=== PATIENT | male | born 1995 | race Caucasian/White ===

== ENCOUNTER 2018-07-29 02:06 | Emergency (ER) | payer BC, MEDICAID ==
[~2018-07-29] VITALS: Ht 175.3 cm; Wt 72.6 kg
[2018-07-29] MEDS ORDERED: IBUPROFEN 800 MG TAB PO ONE (03:30)
[2018-07-29] MEDS ORDERED: ACETAMINOPHEN 500 MG TAB PO ONE (03:30)
[2018-07-29 04:19] VITALS: BP 129/68
== END 2018-07-29 04:22 | disposition home or self-care (01) ==
LOC: ER 02:11
DX: S60.412A Abrasion of right middle finger, initial encounter (principal); M62.830 Muscle spasm of back; M51.26 Other intervertebral disc displacement, lumbar region; M51.44 Schmorl's nodes, thoracic region; Z88.2 Allergy status to sulfonamides; V43.52XA Car driver injured in collision with other type car in traffic accident, initial encounter; Y93.89 Activity, other specified; Y99.8 Other external cause status; Y92.410 Unspecified street and highway as the place of occurrence of the external cause
CPT/HCPCS: 70450; 72128; 72131; 73140

== ENCOUNTER 2020-07-29 20:58 | Emergency (ER) | payer BC, MEDICAID ==
[~2020-07-29] VITALS: Ht 175.3 cm; Wt 72.6 kg
[2020-07-29 21:17] VITALS: BP 130/80
== END 2020-07-29 23:55 | disposition home or self-care (01) ==
LOC: ER 21:03
DX: N43.3 Hydrocele, unspecified (principal); L72.0 Epidermal cyst; Z88.2 Allergy status to sulfonamides
CPT/HCPCS: 76870

== ENCOUNTER 2020-08-01 10:10 | Emergency (ER) | payer BC ==
[~2020-08-01] VITALS: Ht 175.3 cm; Wt 72.6 kg
[2020-08-01] MEDS ORDERED: SODIUM CHLORIDE 0.9% 1,000 ML IV ONE ×2 (10:30)
[2020-08-01] MEDS ORDERED: cefTRIAXone 1GM/50ML D5W 50 ML IV ONE (10:30)
[2020-08-01] MEDS ORDERED: CLINDAMYCIN 600MG IV 50 ML IV ONE (10:30)
[2020-08-01 11:04] LABS: Basophils # (auto) 0 10 ^3/uL (0-0.2); Basophils % (auto) 0.4 % (0.0-2.0); Eosinophils # (auto) 0 10 ^3/uL (0-0.8); Eosinophils % (auto) 0.4 % (0.0-7.0); Hematocrit 43.2 % (41.0-53.0); Hemoglobin 14.8 g/dL (13.5-17.5); Lymphocytes # (auto) 1.7 10 ^3/uL (0.4-5.4); Lymphocytes % (auto) 21.2 % (10.0-50.0); Mean Corpuscular Hemoglobin 30.9 pg (28.0-32.0); Mean Corpuscular Hgb Conc. 34.1 g/dL (32.0-36.0); Mean Corpuscular Volume 90.6 fL (80.0-100.0); Monocytes # (auto) 0.5 10 ^3/uL (0-1.3); Neutrophils # (auto) 5.6 10 ^3/uL (1.6-8.6); Platelet Count (auto) 279 10^3/uL (140-450); Red Blood Cells 4.77 10^6/uL (4.5-5.90); Red Cell Distribution Width 12.9 % (11.8-14.3); White Blood Cell 7.8 10^3/uL (4.4-10.8)
[2020-08-01 11:18] LABS: Albumin 4.2 g/dL (3.4-5.0); Calcium 8.8 mg/dL (8.5-10.1); Potassium 3.7 mmol/L (3.5-5.1)
[2020-08-01 11:23] LABS: BUN/Creatinine Ratio 10.9; Bilirubin, Total 0.2 mg/dL (0.2-1.0); Total Protein 7.3 g/dL (6.4-8.2)
[2020-08-01] MEDS ORDERED: IOHEXOL 300 MG/ML 100ML BOTTLE IJ ONE (11:42)
[2020-08-01 12:11] LABS: Urine WBC None Seen /hpf (0 - 3)
[2020-08-01 12:33] LABS: Urine Bacteria NONE SEEN /hpf (None Seen); Urine Blood Negative /uL (Negative); Urine Specific Gravity 1.026 (1.001-1.035)
[2020-08-01 15:02] VITALS: BP 118/73
== END 2020-08-01 15:04 | disposition home or self-care (01) ==
LOC: ER 10:10
DX: N43.3 Hydrocele, unspecified (principal); L03.818 Cellulitis of other sites; Z88.2 Allergy status to sulfonamides
CPT/HCPCS: 36415; 74177; 80053; 81001; 83605; 85025; 87040; 96365; 96368; 99285; J0696; J3490; Q9967